=== PATIENT | male | born 1975 | race Two or more races ===

== ENCOUNTER → 2025-03-11 | Outpatient (CLI) | payer BC, SELFPAY ==
[2025-03-11 13:22] LABS: Misc Send Out* See Sep Rpt
[2025-03-11 13:44] LABS: Basophils # (Auto) 0.1 Thou/mm3 (0.0-0.2); Basophils % (Auto) 1 % (0-2.5); Eosinophils # (Auto) 0.2 Thou/mm3 (0.0-0.5); Eosinophils % (Auto) 3 % (0-10); Hematocrit 45.5 % (41.0-53.0); Hemoglobin 15.7 g/dL (13.5-16.0); Immature Granulocytes % (Auto) 1 % (0-0); Immature Granulocytes Auto 0.03 Thou/mm3 (0.00-0.00); Lymphocytes # (Auto) 1.6 Thou/mm3 (1.0-4.8); Lymphocytes % (Auto) 25 % (10-50); Mean Corpuscular HGB Conc 34.5 g/dl (31.0-37.0); Mean Corpuscular Hemoglobin 30.5 pg (25.0-35.0); Mean Corpuscular Volume 89 fL (80-100); Monocytes # (Auto) 0.5 Thou/mm3 (0.0-0.8); Monocytes % (Auto) 8 % (0-12); Neutrophils % (Auto) 63 % (37-80); Nucleated Red Blood Cell % 0 /100 WBC (0); Platelet Count 335 Thou/mm3 (140-440); RDW Standard Deviation 43.4 fL (35.1-43.9); Red Blood Count 5.14 Miln/mm3 (4.50-5.90); White Blood Count 6.4 Thou/mm3 (3.8-10.6)
[2025-03-11 13:57] LABS: Glucose Estimated Average 117 mg/dL (80-131); Hemoglobin A1C 5.7 % Hgb (4.8-6.0)
[2025-03-11 14:00] LABS: Cardiac Risk Estimate 2.5 RATIO (4.0-6.7); Cholesterol 148 mg/dL (132-200); HDL Cholesterol 60 mg/dL (40-60); LDL Cholesterol,Calculated 71 mg/dL (0-130); Thyroid Stimulating Hormone 2.12 uIU/mL (0.55-4.78); Triglycerides 87 mg/dL (30-150)
[2025-03-11 14:04] LABS: PSA Medicare Annual Scrn 0.78 ng/mL (0-4.00)
[2025-03-11 14:05] LABS: Folate 19.76 ng/mL (>5.38); Vitamin B12 712 pg/mL (211-911); Vitamin D 25 Hydroxy Total 41.9 ng/mL (7.3-40.2)
[2025-03-16 07:35] LABS: Fecal Globin Result NOT DETECTED (NOT DETECTED)
[2025-03-18 06:48] LABS: Vitamin A (Retinol)* 65 mcg/dL (38-98)
[2025-03-19 06:43] LABS: Vitamin B1 (Thiamine)* 29 nmol/L (8-30)
== END | disposition home or self-care (01) ==
LOC: COPL 03-12 08:15
PROVIDERS: PCP Family Medicine; Referring Provider Nurse Practitioner Family; Visit Provider Nurse Practitioner Family
DX: Z12.11 Encounter for screening for malignant neoplasm of colon (principal); Z86.39 Personal history of other endocrine, nutritional and metabolic disease; R53.83 Other fatigue; E56.9 Vitamin deficiency, unspecified; Z12.5 Encounter for screening for malignant neoplasm of prostate; Z82.49 Family history of ischemic heart disease and other diseases of the circulatory system
CPT/HCPCS: 36415; 80061; 82274; 82306; 82607; 82746; 83036; 84153; 84425; 84436; 84443; 84590; 85025; G0103; G0328